=== PATIENT | female | born 2000 | race Hispanic/Latino ===

== ENCOUNTER 2025-01-24 09:54 | Inpatient (IN) | payer MEDICAID, OTHER ==
[2025-01-26] MEDS ORDERED: Oxytocin 30 units/NS 500 ML 500 ML IV SCH ×2 (04:30)
[2025-01-26 04:34] VITALS: BMI 31.2
[2025-01-26] MEDS ORDERED: HYDROcodone/Acetaminophen 5/325 mg Tablet PO PRN ×2 (04:36→18:43)
[2025-01-26] MEDS ORDERED: Acetaminophen 500 MG TAB PO PRN (04:36)
[2025-01-26] MEDS ORDERED: Ondansetron PF 4 MG/2 ML Vial IVP PRN ×2 (04:36→18:43)
[2025-01-26] MEDS ORDERED: Carboprost 250 MCG/ML AMP IM PRN (04:36)
[2025-01-26] MEDS ORDERED: Methylergonovine 0.2 MG/ML VIAL IM PRN (04:36)
[2025-01-26] MEDS ORDERED: Tranexamic Acid 1,000 MG/10 ML VIAL IVP PRN (04:36)
[2025-01-26] MEDS ORDERED: Ibuprofen 800 MG TAB PO PRN (04:36)
[2025-01-26] MEDS ORDERED: Lidocaine 1% (PF) 30 ML VIAL SC PRN (04:36)
[2025-01-26] MEDS ORDERED: Diphenoxylate HCl/Atropine Tablet PO PRN (04:36)
[2025-01-26] MEDS ORDERED: hydrALAZINE 20 MG/ML VIAL SLOW IVP PRN ×2 (04:36→18:43)
[2025-01-26 04:52] LABS: Hematocrit 36.1 % (34.9-44.5); Hemoglobin 12.0 g/dL (12.0-15.5); Mean Corpuscular Hemoglobin 27.5 pg (27.0-33.0); Mean Corpuscular Volume 82.8 fL (81.6-98.3); Platelet Count 230 10x3/uL (150-450); Red Blood Cell (RBC) Count 4.36 10x6/uL (3.90-5.03); White Blood Cell (WBC) Count 11.03 10x3/uL (3.5-10.5)
[2025-01-26] MEDS: Penicillin G Potassium 5 MILL.UNITS in Sodium Chloride 0.9% 100 ML IVPB SCH (04:58)
[2025-01-26 05:17] LABS: Syphilis Antibody Index 0.11 S/CO (<1.00 Non-Reactive)
[2025-01-26 05:21] LABS: Hep B Surf Ag - L&D Non-Reactive S/CO (NonReactive)
[2025-01-26] MEDS ORDERED: Bupivacaine/Epinephrine 0.25% 30 ML VIAL ONE (08:00)
[2025-01-26] MEDS: Penicillin G 2.5 MILL.units 2.5 MILL.UNITS in Premix 1 BAG IVPB SCH (09:14)
[2025-01-26] MEDS: fentaNYL/Ropivacaine Epidural 100 ML ONE (11:47)
[2025-01-26] MEDS ORDERED: Bisacodyl 10 MG SUPP PR PRN (18:43)
[2025-01-26] MEDS ORDERED: Lanolin Ointment 7 GM TUBE TOP PRN (18:43)
[2025-01-26] MEDS ORDERED: Milk Of Magnesia 30 ML UDCUP PO PRN (18:43)
[2025-01-26] MEDS ORDERED: Benzocaine-Menthol 82.5 ML CAN TOP PRN (18:43)
[2025-01-26] MEDS ORDERED: diphenhydrAMINE 25 MG CAP PO PRN (18:43)
[2025-01-26] MEDS: Boostrix 0.5 ML (Tdap) VIAL (>/=7 yrs of age) IM ONE (21:00)
[2025-01-26] MEDS: Ferrous Sulfate 325 MG TAB PO SCH (21:01)
[2025-01-26] MEDS: Ibuprofen 800 MG TAB PO SCH (21:49)
[2025-01-27] MEDS: Ferrous Sulfate 325 MG TAB PO SCH (07:07)
[2025-01-27 11:52] VITALS: BP 107/59; TEMP 98.5
== END 2025-01-27 17:35 | disposition home or self-care (01) | DRG 807 ==
LOC: CSHLD 01-26 03:19 → CSHPED 01-26 18:20
PROVIDERS: ADMIT Family Medicine; ATTEND Family Medicine
PROC: 10907ZC Drainage of Amniotic Fluid, Therapeutic from Products of Conception, Via Natural or Artificial Opening (ICD-10-PCS; principal; 2025-01-26)
PROC: 10907ZC Drainage of Amniotic Fluid, Therapeutic from Products of Conception, Via Natural or Artificial Opening (ICD-10-PCS; 2025-01-26)
PROC: 10E0XZZ Delivery of Products of Conception, External Approach (ICD-10-PCS; 2025-01-26)
PROC: 0KQM0ZZ Repair Perineum Muscle, Open Approach (ICD-10-PCS; 2025-01-26)
DX: O48.0 Post-term pregnancy (principal); Z37.0 Single live birth; Z3A.40 40 weeks gestation of pregnancy; O99.824 Streptococcus B carrier state complicating childbirth; O70.1 Second degree perineal laceration during delivery
CPT/HCPCS: 36415; 51702; 85027; 86780; 86850; 86900; 86901; 87340; J0595; J2540; J7120